=== PATIENT | female | born 1945 | race Caucasian/White ===

== ENCOUNTER 2017-03-14 10:15 | Emergency (ER) | payer OTHER ==
[2017-03-14 10:19] VITALS: BP 134/77; PULSE 70; RESP 18; TEMP 98.3; O2SAT 97
[2017-03-14] MEDS ORDERED: ATOR20TA15 PO (10:33)
[2017-03-14] MEDS ORDERED: ASPI-516 CHEW (10:33)
[2017-03-14] MEDS ORDERED: LOSA100T PO (10:33)
[2017-03-14] MEDS ORDERED: B-12100T PO (10:33)
[2017-03-14] MEDS ORDERED: BYST5TAB2 PO (10:33)
[2017-03-14] MEDS ORDERED: MORPHINE SULFATE 4 MG/ML INJ IV PUSH ONE (10:45)
[2017-03-14] MEDS ORDERED: SODIUM CHLOR 0.9% 1000 ML INJ 1,000 ML IV SCH (10:45)
[2017-03-14] MEDS ORDERED: ONDANSETRON HCL 4 MG/2 ML VIAL IVP ONE (10:45)
--- NOTE | 2017-03-14 10:45 | PD ---
HPI Chief Complaint: Abdominal Pain Time Seen by Provider: 10:32 Travel History International Travel<30 days: No Contact w/Intl Traveler<30days: No Traveled to known affect area: No History of Present Illness HPI c/o abd pain, , periumbilical, onset saturday, crampy, assoc with n/v/d, now that is less all: pmhx: htn, hyperlip pshx: hyst 84, breast implant PFSH Past Medical History Hx Anticoagulant Therapy: Yes (ASA) Cardiovascular Problems: Yes (HTN) High Cholesterol: Yes Hypertension: Yes Past Surgical History Hysterectomy: Yes Other Surgery: Yes (BREAST IMPLANTS) Social History Alcohol Use: No Tobacco Use: No (STOPPED SMOKING 5 DAYS AGO) Substance Use: No Allergies-Medications (Allergen,Severity, Reaction): Coded Allergies: esomeprazole (Unverified Allergy, Intermediate, NUMBNESS, 03/14/17) Reported Meds & Prescriptions Reported Meds & Active Scripts Active Reported Aspirin 81 Mg Chew 81 Mg CHEW DAILY B-12 (Cyanocobalamin) 100 Mcg Tab 100 Mcg PO DAILY Atorvastatin (Atorvastatin Calcium) 20 Mg Tab 20 Mg PO HS Losartan (Losartan Potassium) 100 Mg Tab 100 Mg PO DAILY Bystolic (Nebivolol) 5 Mg Tab 5 Mg PO DAILY Review of Systems General / Constitutional: No: Fever Eyes: No: Visual changes HENT: No: Headaches Cardiovascular: No: Chest Pain or Discomfort Respiratory: No: Shortness of Breath Gastrointestinal: Positive: Diarrhea, Abdominal Pain Genitourinary: No: Dysuria Musculoskeletal: No: Pain Skin: No Rash Neurologic: No: Weakness Psychiatric: No: Depression Endocrine: No: Polydipsia Hematologic/Lymphatic: No: Easy Bruising Physical Exam Narrative GENERAL: SKIN: Warm and dry. HEAD: Atraumatic. Normocephalic. EYES: Pupils equal and round. No scleral icterus. No injection or drainage. ENT: No nasal bleeding or discharge. Mucous membranes pink and moist. NECK: Trachea midline. No JVD. CARDIOVASCULAR: Regular rate and rhythm. RESPIRATORY: No accessory muscle use. Clear to auscultation. Breath sounds equal bilaterally. GASTROINTESTINAL: Abdomen soft, min suprapubic ttp.. nondistended. MUSCULOSKELETAL: Extremities without clubbing, cyanosis, or edema. No obvious deformities. NEUROLOGICAL: Awake and alert. No obvious cranial nerve deficits. Motor grossly within normal limits. Five out of 5 muscle strength in the arms and legs. Normal speech. PSYCHIATRIC: Appropriate mood and affect; insight and judgment normal. Data Data Last Documented VS Vital Signs Date Time Temp Pulse Resp B/P (MAP) Pulse Ox O2 Delivery O2 Flow Rate FiO2 03/14/17 10:52 99 Room Air 03/14/17 10:19 98.3 70 18 Orders Orders Complete Blood Count With Diff (03/14/17 10:45) Comprehensive Metabolic Panel (03/14/17 10:45) Lipase (03/14/17 10:45) Urinalysis - C+S If Indicated (03/14/17 10:45) Ct Abd/Pel W/O Iv Contrast (03/14/17 10:45) Iv Access Insert/Monitor (03/14/17 10:45) Ecg Monitoring (03/14/17 10:45) Oximetry (03/14/17 10:45) NPO (03/14/17 10:45) Ondansetron Inj (Zofran Inj) (03/14/17 10:45) Sodium Chlor 0.9% 1000 Ml Inj (Ns 1000 M (03/14/17 10:45) Morphine Inj (Morphine Inj) (03/14/17 11:45) Urine Culture (03/14/17 11:05) Potassium Chloride (Kcl) (03/14/17 12:00) Ceftriaxone Inj (Rocephin Inj) (03/14/17 12:00) Labs Laboratory Tests Test 03/14/17 10:45 03/14/17 11:05 White Blood Count 12.0 TH/MM3 Red Blood Count 5.21 MIL/MM3 Hemoglobin 16.8 GM/DL Hematocrit 48.5 % Mean Corpuscular Volume 93.1 FL Mean Corpuscular Hemoglobin 32.3 PG Mean Corpuscular Hemoglobin Concent 34.7 % Red Cell Distribution Width 13.0 % Platelet Count 304 TH/MM3 Mean Platelet Volume 7.9 FL Neutrophils (%) (Auto) 74.7 % Lymphocytes (%) (Auto) 17.2 % Monocytes (%) (Auto) 7.1 % Eosinophils (%) (Auto) 0.6 % Basophils (%) (Auto) 0.4 % Neutrophils # (Auto) 9.0 TH/MM3 Lymphocytes # (Auto) 2.1 TH/MM3 Monocytes # (Auto) 0.9 TH/MM3 Eosinophils # (Auto) 0.1 TH/MM3 Basophils # (Auto) 0.0 TH/MM3 CBC Comment DIFF FINAL Differential Comment Blood Urea Nitrogen 23 MG/DL Creatinine 1.23 MG/DL Random Glucose 126 MG/DL Total Protein 7.9 GM/DL Albumin 4.0 GM/DL Calcium Level 9.1 MG/DL Alkaline Phosphatase 111 U/L Aspartate Amino Transf (AST/SGOT) 20 U/L Alanine Aminotransferase (ALT/SGPT) 20 U/L Total Bilirubin 0.8 MG/DL Sodium Level 138 MEQ/L Potassium Level 2.9 MEQ/L Chloride Level 101 MEQ/L Carbon Dioxide Level 27.5 MEQ/L Anion Gap 10 MEQ/L Estimat Glomerular Filtration Rate 43 ML/MIN Lipase 436 U/L Urine Color YELLOW Urine Turbidity HAZY Urine pH 5.5 Urine Specific [place] 1.019 Urine Protein TRACE mg/dL Urine Glucose (UA) NEG mg/dL Urine Ketones NEG mg/dL Urine Occult Blood TRACE Urine Nitrite NEG Urine Bilirubin NEG Urine Urobilinogen LESS THAN 2.0 MG/DL Urine Leukocyte Esterase NEG Urine RBC 2 /hpf Urine WBC 8 /hpf Urine Squamous Epithelial Cells 7 /hpf Urine Bacteria MOD /hpf Urine Hyaline Casts 1 /lpf Urine Mucus MANY /lpf Microscopic Urinalysis Comment CULTURE INDICATED MDM Medical Decision Making Medical Screen Exam Complete: Yes Emergency Medical Condition: Yes Medical Record Reviewed: Yes Differential Diagnosis gastroenteritis v appy v uti v colitis v divertic Diagnosis Primary Impression: GASTROENTERITIS Additional Impression: UTI Patient Instructions: Full Liquid Diet (DC), Gastroenteritis (ED), General Instructions, Urinary Tract Infection in Women (ED) Scripts Ondansetron Odt (Zofran Odt) 4 Mg Tab 4 MG SL Q6HR Y for Nausea/Vomiting, #12 TAB 0 Refills Prov: Mykel Hay MD 03/14/17 Nitrofurantoin Monohydrate Macrocrystals (Macrobid) 100 Mg Capsule 100 MG PO BID for Infection, #14 CAP 0 Refills Prov: Mykel Hay MD 03/14/17 Disposition: 01 DISCHARGE HOME Condition: Stable Mykel Hay MD Mar 14, 2017 10:45
[2017-03-14 10:52] VITALS: O2SAT 99
[2017-03-14 11:09] LABS: BASOPHIL % 0.4 % (0.0-2.0); EOSINOPHIL # 0.1 TH/MM3 (0-0.4); EOSINOPHIL % 0.6 % (0.0-4.0); HEMATOCRIT 48.5 % (35.0-46.0); HEMOGLOBIN 16.8 GM/DL (11.6-15.3); LYMPH % 17.2 % (9.0-44.0); LYMPHOCYTE # 2.1 TH/MM3 (1.0-4.8); MEAN CELL VOLUME 93.1 FL (80.0-100.0); MEAN CORPUSCULAR HEMOGLOBIN 32.3 PG (27.0-34.0); MEAN CORPUSCULAR HGB CONC 34.7 % (32.0-36.0); MEAN PLATELET VOLUME 7.9 FL (7.0-11.0); MONO % 7.1 % (0.0-8.0); MONOCYTE # 0.9 TH/MM3 (0-0.9); NEUT % 74.7 % (16.0-70.0); PLATELET COUNT 304 TH/MM3 (150-450); RED BLOOD COUNT 5.21 MIL/MM3 (4.00-5.30)
[2017-03-14 11:33] LABS: ALKALINE PHOSPHATASE 111 U/L (45-117); ALT (GPT) 20 U/L (10-53); AST (GOT) 20 U/L (15-37); BICARBONATE 27.5 MEQ/L (21.0-32.0); BLOOD UREA NITROGEN 23 MG/DL (7-18); CALCIUM 9.1 MG/DL (8.5-10.1); CHLORIDE 101 MEQ/L (98-107); CREATININE 1.23 MG/DL (0.50-1.00); GLOMERULAR FILTRATION RATE 43 ML/MIN (>89); GLUCOSE,RANDOM 126 MG/DL (74-106); LIPASE 436 U/L (73-393); SODIUM (NA) 138 MEQ/L (136-145); TOTAL BILIRUBIN ADULT 0.8 MG/DL (0.2-1.0); TOTAL PROTEIN 7.9 GM/DL (6.4-8.2)
[2017-03-14 11:38] LABS: BACTERIA, URINE MOD /hpf; BILIRUBIN, URINE NEG (NEG); BLOOD, URINE TRACE (NEG); GLUCOSE,URINE NEG (NEG); HYALINE CAST, URINE 1 /lpf (RARE); KETONE, URINE NEG (NEG); MUCUS URINE MANY /lpf (OCC); NITRITE,URINE NEG (NEG); PH, URINE 5.5 (5.0-8.5); SQUAMOUS EPITHELIAL CELL URINE 7 /hpf (0-5); URINE COLOR YELLOW (YELLW/STRAW); URINE LEUKOCYTE ESTERASE NEG (NEG)
[2017-03-14] MEDS ORDERED: MORPHINE SULFATE 2 MG/ML INJ IV PUSH ONE (11:45)
[2017-03-14] MEDS ORDERED: POTASSIUM CHLORIDE 10 MEQ CONTROLLED RELEASE TAB PO ONE (12:00)
[2017-03-14] MEDS ORDERED: cefTRIAXone INJ 1,000 MG in SODIUM CHLORIDE 0.9% INJ 100 ML IV ONE (12:00)
--- NOTE | 2017-03-14 12:34 | RADRPT ---
EXAM DATE/TIME: 03/14/2017 12:02 [facility] COMPARISON: No previous studies available for comparison. INDICATIONS : Abdominal pain, diarrhea, evaluate for renal stone ORAL CONTRAST: No oral contrast ingested. RADIATION DOSE: 8.2 CTDIvol (mGy) MEDICAL HISTORY : Hypertension. SURGICAL HISTORY : Hysterectomy. ENCOUNTER: Initial ACUITY: 4 - 6 days PAIN SCALE: 5/10 LOCATION: abdomen TECHNIQUE: Volumetric scanning of the abdomen and pelvis was performed. Using automated exposure control and ad justment of the mA and/or kV according to patient size, radiation dose was kept as low as reasonably achievable to obtain optimal diagnostic quality images. DICOM format image data is available electro nically for review and comparison. FINDINGS: Mild basilar screws disease, predominantly groundglass with atelectasis. No acute findings in the liver and spleen and adrenals. Numerous calcified gallstones. Nonobstructing 4 mm calculus lower pole right kidney. Small bilateral renal cysts. Renal vascular and aortic calcifications present. Colonic diverticulosis without diverticulitis. No obstruction, free fluid or free air. No acute bony abnormalities. CONCLUSION: 1. Nonobstructing 4 mm low pole right renal calculus. Small bilateral renal cysts. 2. Colonic diverticulosis without diverticulitis. 3. Numerous calcified gallstones without biliary ductal dilatation. 4. No obstruction, free fluid or free air. 5. Mild basal airspace disease in the lungs. No effusion. Peter Adam MD on March 14, 2017 at 12:28 Board Certified Radiologist. This report was verified electronically.
[2017-03-14] MEDS ORDERED: ZOFR4TAB3 SL (13:42)
[2017-03-14] MEDS ORDERED: MACR100C2 PO (13:42)
== END 2017-03-14 14:21 | disposition home or self-care (01) ==
LOC: NEPD 10:15
DX: K52.9 Noninfective gastroenteritis and colitis, unspecified (principal); N39.0 Urinary tract infection, site not specified; I10 Essential (primary) hypertension; Z79.82 Long term (current) use of aspirin
CPT/HCPCS: 74176; 80053; 81001; 83690; 85025; 87086; 96361; 96374; 96375; 96376; 99285; J0696; J2270; J2405; J7030